=== PATIENT | male | born 1995 | race African-American/Black ===

== ENCOUNTER 2019-05-02 09:45 | Emergency (ER) | payer SELFPAY ==
--- NOTE | 2019-05-02 10:24 | EDM.PDOC ---
ED HPI GENERAL MEDICAL PROBLEM - General Chief Complaint: ENT Problem Stated Complaint: SORE THROAT Time Seen by Provider: 05/02/19 10:23 Source of Information: Reports: Patient History Limitations: Reports: No Limitations - History of Present Illness INITIAL COMMENTS - FREE TEXT/NARRATIVE: HISTORY AND PHYSICAL: History of present illness: Patient is a 23-year-old male presents to the ED with complaint of nasal congestion and sore throat x 10 days. He states he has had a slight cough and tactile fevers. He denies nausea, vomiting, diarrhea, abdominal pain, chest pain , shortness of breath. He reports history of asthma but has not needed his inhaler recently. Review of systems: As per history of present illness and below otherwise all systems reviewed and negative. Past medical history: As per history of present illness and as reviewed below otherwise noncontributory. Surgical history: As per history of present illness and as reviewed below otherwise noncontributory. Social history: No reported history of drug or alcohol abuse. Family history: As per history of present illness and as reviewed below otherwise noncontributory. Physical exam: General: Patient sitting comfortably in no acute distress and nontoxic appearing HEENT: Atraumatic, normocephalic, pupils reactive, negative for conjunctival pallor or scleral icterus, mucous membranes moist, throat clear, neck supple, nontender, trachea midline. No meningeal signs. Lungs: Clear to auscultation, breath sounds equal bilaterally, chest nontender. Heart: S1S2, regular, negative for clicks, rubs, or overt murmur. Abdomen: Soft, nondistended, nontender. Negative for masses or hepatosplenomegaly. Negative for costovertebral tenderness. No rigidity, rebound , guarding. Pelvis: Stable nontender. Genitourinary: Deferred. Rectal: Deferred. Extremities: Atraumatic, negative for cords or calf pain. Neurovascular unremarkable. Neuro: Awake, alert, oriented. Cranial nerves II through XII unremarkable. Cerebellum unremarkable. Motor and sensory unremarkable throughout. Exam nonfocal. Notes: Diagnostics: influenza, strep Therapeutics: none Prescriptions: Augmentin Impression: acute sinusitis Plan: Take antibiotic as instructed Follow up with primary care provider Return to ED as needed as discussed Definitive disposition and diagnosis as appropriate pending reevaluation and review of above. - Related Data Allergies Allergy/AdvReac Type Severity Reaction Status Date / Time peanut Allergy Anaphylactic Verified 05/02/19 09:56 Shock Home Meds: Home Meds Amoxicillin/Potassium Clav [Augmentin 875-125 Tablet] 1 each PO BID 7 Days #14 tablet 05/02/19 [Rx] Past Medical History - Past Health History Medical/Surgical History: Denies Medical/Surgical History Respiratory History: Reports: Asthma Social & Family History - Family History Family Medical History: Noncontributory - Tobacco Use Smoking Status *Q: Never Smoker - Recreational Drug Use Recreational Drug Use: No ED ROS ENT - Review of Systems Review Of Systems: Comprehensive ROS is negative, except as noted in HPI. ED EXAM, ENT - Physical Exam Exam: See Below (see dictation) Course - Vital Signs Last Recorded V/S: Last Vital Signs Temp 97.0 F 05/02/19 09:53 Pulse 76 05/02/19 09:53 Resp 18 05/02/19 09:53 BP 120/61 05/02/19 09:53 Pulse Ox 98 05/02/19 09:53 - Orders/Labs/Meds Orders: Active Orders 24 hr Category Date Time Status CULTURE STREP A CONFIRMATION [RM] Stat Lab 05/02/19 09:58 Results STREP SCRN A RAPID W CULT CONF [RM] Stat Lab 05/02/19 09:58 Results Departure - Departure Time of Disposition: 10:35 Disposition: Home, Self-Care 01 Condition: Good Clinical Impression: Acute sinusitis - Discharge Information Referrals: PCP,None [Primary Care Provider] - Forms: ED Department Discharge Additional Instructions: The following information is given to patients seen in the emergency department who are being discharged to home. This information is to outline your options for follow-up care. We provide all patients seen in our emergency department with a follow-up referral. The need for follow-up, as well as the timing and circumstances, are variable depending upon the specifics of your emergency department visit. If you don't have a primary care physician on staff, we will provide you with a referral. We always advise you to contact your personal physician following an emergency department visit to inform them of the circumstance of the visit and for follow-up with them and/or the need for any referrals to a consulting specialist. The emergency department will also refer you to a specialist when appropriate. This referral assures that you have the opportunity for follow-up care with a specialist. All of these measure are taken in an effort to provide you with optimal care, which includes your follow-up. Under all circumstances we always encourage you to contact your private physician who remains a resource for coordinating your care. When calling for follow-up care, please make the office aware that this follow-up is from your recent emergency room visit. If for any reason you are refused follow-up, please contact the [facility] Emergency Department at and asked to speak to the emergency department charge nurse. [facility] [address] [place] [id number] [address] Take antibiotic as instructed Follow up with primary care provider Return to ED as needed as discussed Sepsis Event Note - Evaluation Sepsis Screening Result: No Definite Risk - Focused Exam Vital Signs: Vital Signs Temp Pulse Resp BP Pulse Ox 05/02/19 09:53 97.0 F 76 18 120/61 98 Date Exam was Performed: 05/02/19 Time Exam was Performed: 10:35
== END 2019-05-02 10:52 | disposition home or self-care (01) ==
LOC: MW.ED 09:45
DX: J01.90 Acute sinusitis, unspecified (principal); Z91.010 Allergy to peanuts
CPT/HCPCS: 87081; 87804; 87880-QW; 99282; 99283

== ENCOUNTER 2019-05-18 21:32 | Emergency (ER) | payer OTHER ==
[2019-05-18] MEDS ORDERED: EPINEPHrine 1 MG/ML SDV ONE (21:36)
[2019-05-18] MEDS ORDERED: methylPREDNISolone Sodium Succinate 125 MG/2 ML SDV ONE (21:36)
[2019-05-18] MEDS ORDERED: diphenhydrAMINE 50 MG/ML SDV ONE (21:36)
[2019-05-18] MEDS ORDERED: Sodium Chloride 0.9% 10 ML Syringe FLUSH PRN (21:42)
[2019-05-18] MEDS ORDERED: Sodium Chloride 0.9% 2.5 ML Syringe FLUSH PRN (21:42)
[2019-05-18] MEDS ORDERED: Sodium Chloride 0.9% 1,000 ML IV ONE (21:42)
--- NOTE | 2019-05-18 21:46 | EDM.PDOC ---
ED HPI GENERAL MEDICAL PROBLEM - General Chief Complaint: Allergic Reaction Stated Complaint: HIVES Time Seen by Provider: 05/18/19 21:39 - History of Present Illness INITIAL COMMENTS - FREE TEXT/NARRATIVE: HISTORY AND PHYSICAL: History of present illness: The patient is a healthy 23-year-old male who presents with onset of diffuse hives and facial swelling that started about 40 minutes prior to coming to the ED in my evaluation. The patient says that he had a severe allergic reaction in the past after eating pizza but never followed up with an ceramic designer to determine what was the cause. The patient ate a chicken sandwich earlier and then was playing soccer when the symptoms started. He does not feel short of breath but he feels itchy and swollen and he says his tongue is a little swollen. With the prior events the patient says he was in the ER only and spent some time there but was never admitted to the hospital. The patient says he is not sure what was on the chicken sandwich and he is eaten food similar to this in the past without a reaction. He did not take any medications prior to coming here. He is not having any chest pain abdominal pain nausea vomiting and he had no systemic complaints prior to these events. Review of systems: As per history of present illness and below otherwise all systems reviewed and negative. Past medical history: As per history of present illness and as reviewed below otherwise noncontributory. Surgical history: As per history of present illness and as reviewed below otherwise noncontributory. Social history: No reported history of drug or alcohol abuse. Family history: As per history of present illness and as reviewed below otherwise noncontributory. Physical exam: : Well-developed well-nourished thin man who is nontoxic and vital signs are noted by me. He is speaking softly but is not breathless hoarse or muffled HEENT: Atraumatic, normocephalic, pupils reactive, negative for conjunctival pallor or scleral icterus, mucous membranes moist, throat clear, neck supple, nontender, trachea midline. There is some mild diffuse periorbital swelling and his tongue is slightly swollen and he has no uvula or posterior oropharyngeal edema. His lips are slightly swollen Lungs: Clear to auscultation, breath sounds equal bilaterally, chest nontender. No wheezing stridor or work of breathing Heart: S1S2, regular, negative for clicks, rubs, or JVD. Abdomen: Soft, nondistended, nontender. Negative for masses or hepatosplenomegaly. Negative for costovertebral tenderness. Pelvis: Stable nontender. Genitourinary: Deferred. Rectal: Deferred. Extremities: Atraumatic, negative for cords or calf pain. Neurovascular unremarkable. Neuro: Awake, alert, oriented. Cranial nerves II through XII unremarkable. Cerebellum unremarkable. Motor and sensory unremarkable throughout. Exam nonfocal. Skin: There is diffuse urticaria appreciated and turgor is normal Diagnostics: [] Therapeutics: IV O2 monitor IV fluids subcu epi Benadryl Solu-Medrol He is significantly improved, his blood pressure has normalized and has no facial swelling and the rash is gone on his upper extremities and trunk and there is still some residual rash on his legs. He is aware that he needs to connect with a local ceramic designer and have allergy testing to determine the cause of these reactions and have advised him to take Benadryl every 6 hours for the next 24 hours and then as needed as well as the prednisone. Impression: acute Allergic reaction Definitive disposition and diagnosis as appropriate pending reevaluation and review of above. - Related Data Allergies Allergy/AdvReac Type Severity Reaction Status Date / Time peanut Allergy Anaphylactic Verified 05/18/19 22:05 Shock Home Meds: Home Meds . [No Known Home Meds] 05/18/19 [History] Past Medical History - Past Health History Medical/Surgical History: Denies Medical/Surgical History Respiratory History: Reports: Asthma Social & Family History - Family History Family Medical History: Noncontributory ED ROS ALLERGIC REACTION - Review of Systems Review Of Systems: Comprehensive ROS is negative, except as noted in HPI. ED EXAM GENERAL NO PERIP PULSE - Physical Exam Exam: See Below (see dictation) Course - Vital Signs Last Recorded V/S: Last Vital Signs Temp 36.1 C 05/18/19 21:33 Pulse 64 05/18/19 22:15 Resp 16 05/18/19 22:15 BP 120/58 L 05/18/19 22:15 Pulse Ox 99 05/18/19 22:15 - Orders/Labs/Meds Orders: Active Orders 24 hr Category Date Time Status Sodium Chloride 0.9% [Saline Flush] Med 05/18/19 21:42 Active 10 ml FLUSH ASDIRECTED PRN Sodium Chloride 0.9% [Saline Flush] Med 05/18/19 21:42 Active 2.5 ml FLUSH ASDIRECTED PRN Saline Lock Insert [OM.PC] Stat Oth 05/18/19 21:42 Ordered Medication Orders Sodium Chloride (Saline Flush) 10 ml FLUSH ASDIRECTED PRN PRN Reason: Keep Vein Open Sodium Chloride (Saline Flush) 2.5 ml FLUSH ASDIRECTED PRN PRN Reason: Keep Vein Open Meds: Medications Generic Name Dose Route Start Last Admin Trade Name Frejoni PRN Reason Stop Dose Admin Sodium Chloride 10 ml 05/18/19 21:42 Saline Flush FLUSH ASDIRECTED PRN Keep Vein Open Sodium Chloride 2.5 ml 05/18/19 21:42 Saline Flush FLUSH ASDIRECTED PRN Keep Vein Open Discontinued Medications Generic Name Dose Route Start Last Admin Trade Name Frejoni PRN Reason Stop Dose Admin Diphenhydramine HCl Confirm 05/18/19 21:36 05/18/19 22:45 Benadryl Administered 05/18/19 21:37 Not Given Dose 50 mg .ROUTE .STK-MED ONE Diphenhydramine HCl 50 mg 05/18/19 22:44 Benadryl IVPUSH 05/18/19 22:45 ONETIME ONE Epinephrine HCl Confirm 05/18/19 21:36 05/18/19 22:45 Adrenalin Administered 05/18/19 21:37 Not Given Dose 1 mg .ROUTE .STK-MED ONE Epinephrine HCl 0.5 mg 05/18/19 22:44 Adrenalin IM 05/18/19 22:45 ONETIME ONE Sodium Chloride 1,000 mls @ 999 mls/hr 05/18/19 21:42 Normal Saline IV 05/18/19 22:42 STAT ONE Methylprednisolone Sodium Succinate Confirm 05/18/19 21:36 05/18/19 22:45 Solu-Medrol Administered 05/18/19 21:37 Not Given Dose 125 mg .ROUTE .STK-MED ONE Methylprednisolone Sodium Succinate 125 mg 05/18/19 22:44 Solu-Medrol IVPUSH 05/18/19 22:45 ONETIME ONE Departure - Departure Time of Disposition: 23:23 Disposition: Home, Self-Care 01 Condition: Good Clinical Impression: Allergic reaction Qualifiers: Encounter type: initial encounter Qualified Code(s): T78.40XA - Allergy, unspecified, initial encounter - Discharge Information Referrals: PCP,None [Primary Care Provider] - Additional Instructions: The following information is given to patients seen in the emergency department who are being discharged to home. This information is to outline your options for follow-up care. We provide all patients seen in our emergency department with a follow-up referral. The need for follow-up, as well as the timing and circumstances, are variable depending upon the specifics of your emergency department visit. If you don't have a primary care physician on staff, we will provide you with a referral. We always advise you to contact your personal physician following an emergency department visit to inform them of the circumstance of the visit and for follow-up with them and/or the need for any referrals to a consulting specialist. The emergency department will also refer you to a specialist when appropriate. This referral assures that you have the opportunity for followup care with a specialist. All of these measure are taken in an effort to provide you with optimal care, which includes your followup. Under all circumstances we always encourage you to contact your private physician who remains a resource for coordinating your care. When calling for followup care, please make the office aware that this follow-up is from your recent emergency room visit. If for any reason you are refused follow-up, please contact the [facility] emergency department at and ask to speak to the emergency department charge nurse. [facility] Primary care- Internal Medicine and Family [place] [phone] Please connect with 1 of our primary care physicians as well as an ceramic designer to have allergy testing to determine the cause of these reactions. These take Benadryl every 6 hours for the next 24 hours as we discussed and then as needed. Take prednisone as prescribed starting on Saturday. Push hydration and return to ER as needed and as discussed Sepsis Event Note - Focused Exam Vital Signs: Vital Signs Temp Pulse Resp BP Pulse Ox 05/18/19 22:15 64 16 120/58 L 99 05/18/19 21:33 36.1 C 104 H 22 H 94/47 L 97 Date Exam was Performed: 05/18/19 Time Exam was Performed: 23:21 - My Orders Last 24 Hours: My Active Orders 05/18/19 21:42 Sodium Chloride 0.9% [Saline Flush] 10 ml FLUSH ASDIRECTED PRN Sodium Chloride 0.9% [Saline Flush] 2.5 ml FLUSH ASDIRECTED PRN Saline Lock Insert [OM.PC] Stat - Assessment/Plan Last 24 Hours: My Active Orders 05/18/19 21:42 Sodium Chloride 0.9% [Saline Flush] 10 ml FLUSH ASDIRECTED PRN Sodium Chloride 0.9% [Saline Flush] 2.5 ml FLUSH ASDIRECTED PRN Saline Lock Insert [OM.PC] Stat
[2019-05-18] MEDS ORDERED: methylPREDNISolone Sodium Succinate 125 MG/2 ML SDV IVPUSH ONE (22:44)
[2019-05-18] MEDS ORDERED: EPINEPHrine 1 MG/ML SDV IM ONE (22:44)
[2019-05-18] MEDS ORDERED: diphenhydrAMINE 50 MG/ML SDV IVPUSH ONE (22:44)
== END 2019-05-18 23:35 | disposition home or self-care (01) ==
LOC: MW.ED 21:32
DX: L50.0 Allergic urticaria (principal); Z91.010 Allergy to peanuts
CPT/HCPCS: 96372; 96374; 96375; 99283; J0171; J1200; J2930; J7030

== ENCOUNTER 2020-06-12 20:18 | Emergency (ER) | payer OTHER ==
[2020-06-12] MEDS ORDERED: diphenhydrAMINE 50 MG/ML SDV IVPUSH ONE (20:31)
[2020-06-12] MEDS ORDERED: Sodium Chloride 0.9% 1,000 ML IV ONE (20:31)
[2020-06-12] MEDS ORDERED: methylPREDNISolone Sodium Succinate 125 MG/2 ML SDV IVPUSH ONE (20:31)
[2020-06-12] MEDS ORDERED: Famotidine 20 MG/2 ML SDV IVPUSH ONE (20:31)
--- NOTE | 2020-06-12 20:37 | EDM.PDOC ---
ED HPI GENERAL MEDICAL PROBLEM - General Chief Complaint: Allergic Reaction Stated Complaint: ALLERGIC REACTION Time Seen by Provider: 06/12/20 20:31 Source of Information: Reports: Patient History Limitations: Reports: No Limitations - History of Present Illness INITIAL COMMENTS - FREE TEXT/NARRATIVE: HISTORY AND PHYSICAL: History of present illness: Patient is a 24-year-old male who presents to the emergency room with complaints of rash, itching and slightly short of breath after coming into contact with peanuts. States approximately an hour prior to arrival he was at [employer] eating ice cream when he started to have symptoms. His significant other had given him 50 mg of Benadryl but felt his symptoms were not improving. He has a known allergy to peanuts but has been encouraged to get formal testing as they are concerned he could have other allergies. Patient denies any fever, chills, headache, change in vision, syncope or near syncope. No drooling or difficulty swallowing. Denies any chest pain, back pain, shortness of breath or cough. Denies any abdominal pain, nausea, vomiting, diarrhea, constipation or dysuria. Has not noted any blood in urine or stool. Patient has been eating and drinking appropriately. Review of systems: As per history of present illness and below otherwise all systems reviewed and negative. Past medical history: As per history of present illness and as reviewed below otherwise noncontributory. Surgical history: As per history of present illness and as reviewed below otherwise noncontributory. Social history: See social history for further information Family history: As per history of present illness and as reviewed below otherwise noncontributory. Physical exam: General: Well developed and well nourished. Alert and orientated x 3. Nontoxic in appearance and in no acute distress. Vital signs are stable and have been reviewed by me. Nursing notes were reviewed. HEENT: Atraumatic, normocephalic, pupils equal and reactive bilaterally, negative for conjunctival pallor or scleral icterus, mucous membranes moist, no angioedema noted, TMs normal bilaterally, throat clear, neck supple, nontender, trachea midline. No drooling or trismus noted. Speaking clearly. No meningeal signs. No hot potato voice noted. Lungs: Clear to auscultation bilaterally. No wheezes, rales, or rhonchi. Chest nontender. Normal work of breathing, no accessory muscles used. Heart: S1S2, regular rate and rhythm without overt murmur, gallops, or rubs. No JVD. No peripheral edema Abdomen: Soft, nondistended, nontender. Normoactive bowel sounds. Negative for masses or costovertebral tenderness. Skin: Faint raised hives noted to neck, torso and upper extremities. Remaining skin is intact, warm, dry. No lesions noted. Hematologic: No petechiae or purpra. Mucosa appropriate color and normal nail bed color and refill. Extremities: Atraumatic, moves all extremities per self without difficulty or deficits, negative for cords or calf pain. Neurovascular unremarkable. Neuro: Awake, alert, oriented. Cranial nerves II through XII unremarkable. Cerebellum unremarkable. Motor and sensory unremarkable throughout. Exam nonfoca l. Psychiatric: Mood and affect are appropriate. Normal thought process. Answering questions appropriately. Notes: *This patient was seen and evaluated during the 2019 SARS-CoV-2 novel coronavirus pandemic period. Community viral transmission is ongoing at time of this encounter and the emergency department is operating under pandemic response procedures. Patient was reevaluated several times after receiving the IV medication and he states he is gradually feeling improved. His vital signs remained stable. We will continue to monitor. I have talked with the patient about today's findings, in addition to providing specific details for plan of care. Reassessment at the time of disposition demonstrates that the patient is in no acute distress. Lung sounds clear. VSS. He is currently asymptomatic. The patient is stable for discharge, counseling was provided and we discussed in great detail signs and symptoms that would prompt them to return to the Emergency Department. Medication, follow up and supportive care measures were reviewed and discussed. Voices understanding and is agreeable to plan of care. Denies any further questions or concerns at this time. Diagnostics: None Therapeutics: Benadryl, Solu-Medrol, Pepcid, IV fluid Prescription: EpiPen, Prednisone Impression: Allergic reaction Plan: 1. Avoid triggers. Continue to monitor for possible exposures/triggers/foods. 2. While symptomatic continue to routinely take Benadryl 50mg every 4-6 hours and Zantac 150mg twice daily. Take the prednisone as prescribed. 3. Carry your Epi-Pen with you at all times. Use in the case of an emergency and call 911 and/or present to the ER. 4. You may use topical calamine lotion, cool tempid oatmeal baths, Aveeno bath/lotions. 5. Consider formal allergy testing once you have completed your medications and have improved. 6. Please follow up with your Primary care doctor tomorrow. Return to the ED as needed and as discussed. Definitive disposition and diagnosis as appropriate pending reevaluation and review of above. - Related Data Allergies Allergy/AdvReac Type Severity Reaction Status Date / Time peanut Allergy Anaphylactic Verified 06/12/20 20:22 Shock Home Meds: Home Meds EPINEPHrine [Epipen] 0.3 mg IM ASDIRECTED PRN #1 pen 06/12/20 [Rx] predniSONE [Prednisone] 40 mg PO DAILY 4 Days #8 tablet 06/12/20 [Rx] Past Medical History - Past Health History Medical/Surgical History: Denies Medical/Surgical History Respiratory History: Reports: Asthma Immunologic History: Reports: Other (See Below) Other Immunologic History: anaphylaxis apr 2018 - Infectious Disease History Infectious Disease History: Reports: None Social & Family History - Family History Family Medical History: No Pertinent Family History - Tobacco Use Tobacco Use Status *Q: Never Tobacco User - Caffeine Use Caffeine Use: Reports: None - Recreational Drug Use Recreational Drug Use: No ED ROS ALLERGIC REACTION - Review of Systems Review Of Systems: Comprehensive ROS is negative, except as noted in HPI. ED EXAM GENERAL NO PERIP PULSE - Physical Exam Exam: See Below (See dictation) Course - Vital Signs Last Recorded V/S: Last Vital Signs Temp 98.4 F 06/12/20 20:23 Pulse 72 06/12/20 21:27 Resp 16 06/12/20 21:27 BP 118/72 06/12/20 21:27 Pulse Ox 98 06/12/20 21:27 - Orders/Labs/Meds Meds: Medications Discontinued Medications Generic Name Dose Route Start Last Admin Trade Name Freq PRN Reason Stop Dose Admin Diphenhydramine HCl 50 mg 06/12/20 20:31 06/12/20 20:41 Benadryl IVPUSH 06/12/20 20:32 50 mg ONETIME ONE Administration Famotidine 20 mg 06/12/20 20:31 06/12/20 20:41 Pepcid IVPUSH 06/12/20 20:32 20 mg ONETIME ONE Administration Sodium Chloride 1,000 mls @ 999 mls/hr 06/12/20 20:31 06/12/20 20:37 Normal Saline IV 06/12/20 21:31 999 mls/hr STAT ONE Administration Methylprednisolone Sodium Succinate 125 mg 06/12/20 20:31 06/12/20 20:39 Solu-Medrol IVPUSH 06/12/20 20:32 125 mg ONETIME ONE Administration Departure - Departure Time of Disposition: 22:07 Disposition: Home, Self-Care 01 Clinical Impression: Allergic reaction Qualifiers: Encounter type: initial encounter Qualified Code(s): T78.40XA - Allergy, unspecified, initial encounter - Discharge Information Prescriptions: EPINEPHrine [Epipen] 0.3 mg IM ASDIRECTED PRN #1 pen PRN Reason: Allergic reaction predniSONE [Prednisone] 40 mg PO DAILY 4 Days #8 tablet Instructions: Allergies, Adult, [id number] Referrals: PCP,None [Primary Care Provider] - Forms: ED Department Discharge Additional Instructions: The following information is given to patients seen in the emergency department who are being discharged to home. This information is to outline your options for follow-up care. We provide all patients seen in our emergency department with a follow-up referral. The need for follow-up, as well as the timing and circumstances, are variable depending upon the specifics of your emergency department visit. If you don't have a primary care physician on staff, we will provide you with a referral. We always advise you to contact your personal physician following an emergency department visit to inform them of the circumstance of the visit and for follow-up with them and/or the need for any referrals to a consulting specialist. The emergency department will also refer you to a specialist when appropriate. This referral assures that you have the opportunity for follow-up care with a specialist. All of these measure are taken in an effort to provide you with optimal care, which includes your follow-up. Under all circumstances we always encourage you to contact your private physician who remains a resource for coordinating your care. When calling for follow-up care, please make the office aware that this follow-up is from your recent emergency room visit. If for any reason you are refused follow-up, please contact the [facility] Emergency Department at and asked to speak to the emergency department charge nurse. [facility] [address] [place] [id number] [facility] [address] [place] [id number] Thank you for choosing the [facility] emergency department in [place] for your medical needs today. It was a pleasure caring for you. Today you were seen in the emergency department for allergic reaction 1. Avoid triggers. Continue to monitor for possible exposures/triggers/foods. 2. While symptomatic continue to routinely take Benadryl 50mg every 4-6 hours and Zantac 150mg twice daily. Take the prednisone as prescribed. 3. Carry your Epi-Pen with you at all times. Use in the case of an emergency and call 911 and/or present to the ER. 4. You may use topical calamine lotion, cool tempid oatmeal baths, Aveeno bath/lotions. 5. Consider formal allergy testing once you have completed your medications and have improved. 6. Please follow up with your Primary care doctor tomorrow. Return to the ED as needed and as discussed. Sepsis Event Note (ED) - Evaluation Sepsis Screening Result: No Definite Risk - Focused Exam Vital Signs: Vital Signs Temp Pulse Resp BP Pulse Ox 06/12/20 21:27 72 16 118/72 98 06/12/20 20:23 98.4 F 72 20 122/80 98
== END 2020-06-12 22:09 | disposition home or self-care (01) ==
LOC: MW.ED 20:18
DX: T78.40XA Allergy, unspecified, initial encounter (principal); J45.909 Unspecified asthma, uncomplicated; Z91.010 Allergy to peanuts
CPT/HCPCS: 96374; 96375; 99283; J1200; J2930; J3490; J7030

== ENCOUNTER 2020-07-12 18:10 | Emergency (ER) | payer OTHER ==
--- NOTE | 2020-07-12 19:01 | EDM.PDOC ---
ED HPI GENERAL MEDICAL PROBLEM - General Chief Complaint: Laceration Stated Complaint: RT ELBOW CUT Time Seen by Provider: 07/12/20 18:16 Source of Information: Reports: Patient History Limitations: Reports: No Limitations - History of Present Illness INITIAL COMMENTS - FREE TEXT/NARRATIVE: HISTORY AND PHYSICAL: History of present illness: The patient is a 24-year-old male who presents to the emergency room with complaints of right posterior elbow laceration, which happened when he was leaving work as he was putting on his jacket and extending his arm he caught it on some that will object on the wall. He states he washed the wound and came straight to the emergency room. His tetanus is up-to-date. He has no other injuries. Patient denies any fever, chills, headache, change in vision, syncope or near syncope. Denies any chest pain, back pain, shortness of breath or cough. Denies any abdominal pain, nausea, vomiting, diarrhea, constipation or dysuria. Has not noted any blood in urine or stool. Patient has been eating and drinking appropriately. Review of systems: As per history of present illness and below otherwise all systems reviewed and negative. Past medical history: As per history of present illness and as reviewed below otherwise noncontributory. Surgical history: As per history of present illness and as reviewed below otherwise noncontributo ry. Social history: See social history for further information Family history: As per history of present illness and as reviewed below otherwise noncontributory. Physical exam: General: Well developed and well nourished. Alert and orientated x 3. Nontoxic in appearance and in no acute distress. Vital signs are stable and have been reviewed by me. Nursing notes were reviewed. HEENT: Atraumatic, normocephalic, pupils equal and reactive bilaterally, negative for conjunctival pallor or scleral icterus, mucous membranes moist, TMs normal bilaterally, throat clear, neck supple, nontender, trachea midline. No drooling or trismus noted. No meningeal signs. No hot potato voice noted. Lungs: Clear to auscultation bilaterally. No wheezes, rales, or rhonchi. Chest nontender. Normal work of breathing, no accessory muscles used. Heart: S1S2, regular rate and rhythm without overt murmur, gallops, or rubs. No JVD. No peripheral edema Abdomen: Soft, nondistended, nontender. Normoactive bowel sounds. Negative for masses or costovertebral tenderness. Skin: I2.5 cm linear laceration posterior right elbow. CMS intact. No lesions or rashes noted. Hematologic: No petechiae or purpra. Mucosa appropriate color and normal nail bed color and refill. Extremities: Moves all extremities per self without difficulty or deficits, negative for cords or calf pain. Neurovascular unremarkable. Neuro: Awake, alert, oriented. Cranial nerves II through XII unremarkable. Cerebellum unremarkable. Motor and sensory unremarkable throughout. Exam nonfocal. Psychiatric: Mood and affect are appropriate. Normal thought process. Answering questions appropriately. Notes: *This patient was seen and evaluated during the 2019 SARS-CoV-2 novel coronavirus pandemic period. Community viral transmission is ongoing at time of this encounter and the emergency department is operating under pandemic response procedures. After examination discussed with the patient he is agreeable to suture repair. 4 sutures were used in repair the 2.5 cm laceration located on the posterior right elbow. I have talked with the patient about today's findings, in addition to providing specific details for plan of care. Reassessment at the time of disposition demonstrates that the patient is in no acute distress. The patient is stable for discharge, counseling was provided and we discussed in great detail signs and symptoms that would prompt them to return to the Emergency Department. Medication, follow up and supportive care measures were reviewed and discussed. Voices understanding and is agreeable to plan of care. Denies any further questions or concerns at this time. Therapeutics: lidocaine 1% Impression: Laceration Plan: 1. You were evaluated today on an emergent basis. Your right elbow laceration was repaired with four sutures. Keep the area clean and dry. Monitor for redness, swelling, abnormal drainage return to the ED. Do not submerge your sutures in water, but you can take showers as normal. 2. You can alternate Tylenol and ibuprofen as needed for pain and fever management. 3. We encourage you to follow up with your primary care provider and/or recommended specialist in the next few days for re-evaluation and further care/management. 4. If your symptoms should worsen, new symptoms develop or any of the signs and symptoms we discussed should arise please return to the emergency room or call 911 (if needed). Definitive disposition and diagnosis as appropriate pending reevaluation and review of above. Right forearm Pain Score (Numeric/FACES): 1 - Related Data Allergies Allergy/AdvReac Type Severity Reaction Status Date / Time peanut Allergy Anaphylactic Verified 07/12/20 18:34 Shock Home Meds: Home Meds EPINEPHrine [Epipen] 0.3 mg IM ASDIRECTED PRN #1 pen 06/12/20 [Rx] Past Medical History - Past Health History Medical/Surgical History: Denies Medical/Surgical History Respiratory History: Reports: Asthma Immunologic History: Reports: Other (See Below) Other Immunologic History: anaphylaxis apr 2018 - Infectious Disease History Infectious Disease History: Reports: None Social & Family History - Family History Family Medical History: No Pertinent Family History - Tobacco Use Tobacco Use Status *Q: Never Tobacco User - Caffeine Use Caffeine Use: Reports: None - Recreational Drug Use Recreational Drug Use: No ED ROS GENERAL - Review of Systems Review Of Systems: Comprehensive ROS is negative, except as noted in HPI. ED EXAM, SKIN/RASH Exam: See Below (See dictation) ED SKIN PROCEDURES - Laceration/Wound Repair Right Posterior Elbow Appearance: Superficial Distal NVT: Neuro & Vascular Intact, No Tendon Injury Anesthetic Type: Local Local Anesthesia - Lidocaine (Xylocaine): 1% Plain Local Anesthetic Volume: 4cc Skin Prep: Chlorhexidine (Hibiciens) Exploration/Debridement/Repair: Wound Explored, No Foreign Material Found, Wound Margins Revised Closed with: Sutures Lac/Wound length In cm: 2.5 Suture Size: 3-0 # of Sutures: 4 Suture Type: Prolene Course - Vital Signs Last Recorded V/S: Last Vital Signs Temp 97.3 F 07/12/20 18:34 Pulse 67 07/12/20 18:34 Resp 16 07/12/20 18:34 BP 115/70 07/12/20 18:34 Pulse Ox 98 07/12/20 18:34 - Orders/Labs/Meds Meds: Medications Discontinued Medications Generic Name Dose Route Start Last Admin Trade Name Freq PRN Reason Stop Dose Admin Lidocaine HCl 5 ml 07/12/20 18:29 07/12/20 18:33 Lidocaine 1% 5 Ml Sdv INJECT 07/12/20 18:30 5 ml ONETIME ONE Administration Departure - Departure Time of Disposition: 19:00 Disposition: Home, Self-Care 01 Condition: Good Clinical Impression: Laceration - Discharge Information *PRESCRIPTION DRUG MONITORING PROGRAM REVIEWED*: Not Applicable *COPY OF PRESCRIPTION DRUG MONITORING REPORT IN PATIENT GEOVANNI: Not Applicable Instructions: Laceration Care, Adult Referrals: PCP,None [Primary Care Provider] - Forms: ED Department Discharge Additional Instructions: The following information is given to patients seen in the emergency department who are being discharged to home. This information is to outline your options for follow-up care. We provide all patients seen in our emergency department with a follow-up referral. The need for follow-up, as well as the timing and circumstances, are variable depending upon the specifics of your emergency department visit. If you don't have a primary care physician on staff, we will provide you with a referral. We always advise you to contact your personal physician following an emergency department visit to inform them of the circumstance of the visit and for follow-up with them and/or the need for any referrals to a consulting specialist. The emergency department will also refer you to a specialist when appropriate. This referral assures that you have the opportunity for follow-up care with a specialist. All of these measure are taken in an effort to provide you with optimal care, which includes your follow-up. Under all circumstances we always encourage you to contact your private physician who remains a resource for coordinating your care. When calling for follow-up care, please make the office aware that this follow-up is from your recent emergency room visit. If for any reason you are refused follow-up, please contact the [facility] Emergency Department at and asked to speak to the emergency department charge nurse. [facility] - [facility] [address] [place] [address] [place] [address] Plan: 1. You were evaluated today on an emergent basis. Your right elbow laceration was repaired with four sutures. Keep the area clean and dry. Monitor for redness, swelling, abnormal drainage return to the ED. Do not submerge your sutures in water, but you can take showers as normal. 2. You can alternate Tylenol and ibuprofen as needed for pain and fever management. 3. We encourage you to follow up with your primary care provider and/or recommended specialist in the next few days for re-evaluation and further care/management. 4. If your symptoms should worsen, new symptoms develop or any of the signs and symptoms we discussed should arise please return to the emergency room or call 911 (if needed). Sepsis Event Note (ED) - Evaluation Sepsis Screening Result: No Definite Risk - Focused Exam Vital Signs: Vital Signs Temp Pulse Resp BP Pulse Ox 07/12/20 18:34 97.3 F 67 16 115/70 98
== END 2020-07-12 19:20 | disposition home or self-care (01) ==
LOC: MW.ED 18:10
DX: S51.011A Laceration without foreign body of right elbow, initial encounter (principal); J45.909 Unspecified asthma, uncomplicated; Z91.010 Allergy to peanuts; W23.0XXA Caught, crushed, jammed, or pinched between moving objects, initial encounter
CPT/HCPCS: 12001; 99282; 99282-25

== ENCOUNTER 2020-09-26 18:38 | Emergency (ER) | payer SELFPAY ==
[2020-09-26] MEDS ORDERED: Famotidine 20 MG/2 ML SDV IVPUSH ONE (18:52)
[2020-09-26] MEDS ORDERED: diphenhydrAMINE 50 MG/ML SDV IVPUSH ONE (18:52)
[2020-09-26] MEDS ORDERED: Sodium Chloride 0.9% 10 ML Syringe FLUSH PRN (18:52)
[2020-09-26] MEDS ORDERED: methylPREDNISolone Sodium Succinate 125 MG/2 ML SDV IVPUSH ONE (18:52)
[2020-09-26] MEDS ORDERED: Sodium Chloride 0.9% 2.5 ML Syringe FLUSH PRN (18:52)
--- NOTE | 2020-09-26 18:56 | EDM.PDOC ---
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 Patient reports that he does have an allergy to peanuts as well as seafood but he does not think that he had any exposure to that today. Patient reports that he works at [employer] and today he had a new hamburger with new types of onions and sauce and thinks that might have been the culprit. Patient denies any recent fevers, shakes, chills, nausea, vomiting, diarrhea, dysuria, frequency, urgency. Patient denies any chest pain or abdominal discomfort. Patient denies any shortness of breath or wheezing. Patient reports he does feel a slight tickle in the back of his throat but denies any swelling in his tongue or lips. Patient reports in the past he has been instructed to follow-up with an senior medical billing specialist which she has not done therefore he is not exactly sure what he is allergic to. Review of systems: As per history of present illness and below otherwise all systems reviewed and negative. Past medical history: As per history of present illness and as reviewed below otherwise noncontributory. Surgical history: As per history of present illness and as reviewed below otherwise noncontributory. Social history: No reported history of drug abuse. Family history: As per history of present illness and as reviewed below otherwise noncontrib utory. Physical exam: This patient was seen and evaluated during the 2019 SARS-CoV-2 novel coronavirus pandemic period. Community viral transmission is ongoing at time of this encounter and the emergency department is operating under pandemic response procedures. Constitutional: Patient is oriented to person, place, and time. Appears well- developed and well-nourished. No distress. HEENT: Moist mucous membranes Head: Normocephalic and atraumatic Eyes: Right eye exhibits no discharge. Left eye exhibits no discharge. No scleral icterus Neck: Normal range of motion. No tracheal deviation present. Cardiovascular: Normal rate and regular rhythm. Pulmonary: Effort normal, no respiratory distress. Abdominal: No distention Musculoskeletal: Normal range of motion Neurologic: Alert and oriented to person, place and time. Skin: [place], warm and dry. Psychiatric: Normal mood and affect. Behavior is normal. Judgment and thought content normal. Nursing note and vital signs have been reviewed Patient's ER physical exam is significant for diffuse hives throughout his body including his arms torso face neck and back. Patient's oropharynx is clear without any uvular or tongue edema. Patient has no stridor. Patient's lungs are clear without any wheezing rales or rhonchi. Diagnostics: [] Therapeutics: Pepcid/Solu-Medrol/Benadryl Assessment and plan: This is a 25-year-old gentleman who presents ER today with hives of unclear etiology. 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 Patient believes that he might have an allergy to peanuts as well as seafood and he reports he did not have any peanuts or seafood today. Patient will be given Solu-Medrol, Pepcid, Benadryl in the ED and will be observed in the ER. Patient will likely need to be discharged home with an EpiPen if he improves. Care will be signed out to oncoming physician, Dr. Puga for reevaluation and monitoring in the ED until his rash improves and to make sure that he has no airway compromise that developed. Definitive disposition and diagnosis as appropriate pending reevaluation and review of above. - Related Data Allergies Allergy/AdvReac Type Severity Reaction Status Date / Time peanut Allergy Anaphylactic Verified 09/26/20 18:47 Shock Home Meds: Home Meds methylPREDNISolone [Medrol Dose Pack] 4 mg PO DAILY #21 tab 09/26/20 [Rx] Past Medical History - Past Health History Medical/Surgical History: Denies Medical/Surgical History Respiratory History: Reports: Asthma Immunologic History: Reports: Other (See Below) Other Immunologic History: anaphylaxis apr 2018 - Infectious Disease History Infectious Disease History: Reports: None Social & Family History - Family History Family Medical History: No Pertinent Family History - Caffeine Use Caffeine Use: Reports: None ED ROS ALLERGIC REACTION - Review of Systems Review Of Systems: See Below ED EXAM GENERAL NO PERIP PULSE - Physical Exam Exam: See Below Departure - Departure Disposition: Home, Self-Care 01 Clinical Impression: Urticaria - Discharge Information Prescriptions: methylPREDNISolone [Medrol Dose Pack] 4 mg PO DAILY #21 tab Instructions: Hives Referrals: PCP,None [Primary Care Provider] - Forms: ED Department Discharge Additional Instructions: Pepcid and Benadryl should be taken for 3 days. They are [id number] oral medications. A steroid Dosepak was sent to your pharmacy. After the steroids are finished if you have a sudden recurrence of the rash then you need to investigate what environmental exposure is ongoing and continuous. Allergy testing is advised. There are senior medical billing specialist in my not who are not affiliated with this hospital. You can have your primary doctor or eye primary care clinic or call directly and make arrangements to be seen. [facility] - Primary Care [address] [place] [id number] [place] [address] The following information is given to patients seen in the emergency department who are being discharged to home. This information is to outline your options f or follow-up care. We provide all patients seen in our emergency department with a follow-up referral. The need for follow-up, as well as the timing and circumstances, are variable depending upon the specifics of your emergency department visit. If you don't have a primary care physician on staff, we will provide you with a referral. We always advise you to contact your personal physician following an emergency department visit to inform them of the circumstance of the visit and for follow-up with them and/or the need for any referrals to a consulting specialist. The emergency department will also refer you to a specialist when appropriate. This referral assures that you have the opportunity for follow-up care with a specialist. All of these measure are taken in an effort to provide you with optimal care, which includes your follow-up. Under all circumstances we always encourage you to contact your private physician who remains a resource for coordinating your care. When calling for follow-up care, please make the office aware that this follow-up is from your recent emergency room visit. If for any reason you are refused follow-up, please contact the [facility] Emergency Department at and asked to speak to the emergency department charge nurse. <Hank Puga - Last Filed: 09/26/20 19:52> Course - Vital Signs Text/Narrative:: Seen 51 hours the patient is markedly improved. He says not completely improved. He is counseled regarding seeing an senior medical billing specialist if it returns as soon as he finishes his Medrol Dosepak that was sent to the pharmacy. Last Recorded V/S: Last Vital Signs Temp 36.8 C 09/26/20 19:06 Pulse 84 09/26/20 19:06 Resp 20 09/26/20 19:06 BP 134/63 09/26/20 19:06 Pulse Ox 98 09/26/20 19:06 - Orders/Labs/Meds Orders: Active Orders 24 hr Category Date Time Status Sodium Chloride 0.9% [Saline Flush] Med 09/26/20 18:52 Active 10 ml FLUSH ASDIRECTED PRN Sodium Chloride 0.9% [Saline Flush] Med 09/26/20 18:52 Active 2.5 ml FLUSH ASDIRECTED PRN Saline Lock Insert [OM.PC] Stat Oth 09/26/20 18:52 Ordered Medication Orders Sodium Chloride (Sodium Chloride 0.9% 10 Ml Syringe) 10 ml FLUSH ASDIRECTED PRN PRN Reason: Keep Vein Open Last Admin: 09/26/20 19:03 Dose: 10 ml Documented by: MIRIAM Sodium Chloride (Sodium Chloride 0.9% 2.5 Ml Syringe) 2.5 ml FLUSH ASDIRECTED PRN PRN Reason: Keep Vein Open Last Admin: 09/26/20 19:02 Dose: 2.5 ml Documented by: MIRIAM Meds: Medications Generic Name Dose Route Start Last Admin Trade Name Freq PRN Reason Stop Dose Admin Sodium Chloride 10 ml 09/26/20 18:52 09/26/20 19:03 Sodium Chloride 0.9% 10 Ml Syringe FLUSH 10 ml ASDIRECTED PRN Administration Keep Vein Open Sodium Chloride 2.5 ml 09/26/20 18:52 09/26/20 19:02 Sodium Chloride 0.9% 2.5 Ml Syringe FLUSH 2.5 ml ASDIRECTED PRN Administration Keep Vein Open Discontinued Medications Generic Name Dose Route Start Last Admin Trade Name Freq PRN Reason Stop Dose Admin Diphenhydramine HCl 50 mg 09/26/20 18:52 09/26/20 19:02 Diphenhydramine 50 Mg/Ml Sdv IVPUSH 09/26/20 18:53 50 mg ONETIME ONE Administration Famotidine 20 mg 09/26/20 18:52 09/26/20 19:02 Famotidine 20 Mg/2 Ml Sdv IVPUSH 09/26/20 18:53 20 mg ONETIME ONE Administration Methylprednisolone Sodium Succinate 125 mg 09/26/20 18:52 09/26/20 19:02 Methylprednisolone Sodium Succinate 125 Mg/2 Ml Sdv IVPUSH 09/26/20 18:53 125 mg ONETIME ONE Administration Departure - Departure Time of Disposition: 19:52 Condition: Good Sepsis Event Note (ED) - Focused Exam Vital Signs: Vital Signs Temp Pulse Resp BP Pulse Ox 09/26/20 19:06 36.8 C 84 20 134/63 98 09/26/20 18:48 36.4 C 110 H 17 134/63 97
== END 2020-09-26 20:03 | disposition home or self-care (01) ==
LOC: MW.ED 18:38
DX: L50.9 Urticaria, unspecified (principal); J45.909 Unspecified asthma, uncomplicated; Z91.010 Allergy to peanuts
CPT/HCPCS: 96374; 96375; 99283; J1200; J2930; J3490

== ENCOUNTER 2020-11-05 00:01 | Emergency (ER) | payer SELFPAY ==
[2020-11-05] MEDS ORDERED: Famotidine 20 MG/2 ML SDV IVPUSH ONE (00:14)
[2020-11-05] MEDS ORDERED: diphenhydrAMINE 50 MG/ML SDV IVPUSH ONE (00:14)
[2020-11-05] MEDS ORDERED: methylPREDNISolone Sodium Succinate 125 MG/2 ML SDV IVPUSH ONE (00:14)
== END 2020-11-05 00:22 | disposition left against medical advice (07) ==
LOC: MW.ED 00:01
DX: T78.40XA Allergy, unspecified, initial encounter (principal); Z53.21 Procedure and treatment not carried out due to patient leaving prior to being seen by health care provider

== ENCOUNTER 2021-03-10 23:43 | Emergency (ER) | payer SELFPAY ==
[2021-03-10] MEDS ORDERED: diphenhydrAMINE 50 MG/ML SDV ONE (23:51)
[2021-03-10] MEDS ORDERED: methylPREDNISolone Sodium Succinate 125 MG/2 ML SDV ONE (23:51)
[2021-03-10] MEDS ORDERED: Famotidine 20 MG/2 ML SDV ONE (23:51)
[2021-03-10] MEDS ORDERED: diphenhydrAMINE 50 MG/ML SDV IVPUSH ONE (23:54)
[2021-03-10] MEDS ORDERED: methylPREDNISolone Sodium Succinate 125 MG/2 ML SDV IVPUSH ONE (23:55)
--- NOTE | 2021-03-11 00:18 | EDM.PDOC ---
ED HPI GENERAL MEDICAL PROBLEM - General Chief Complaint: Allergic Reaction Stated Complaint: POSSIBLE ALLERGIC REACTION Time Seen by Provider: 03/10/21 23:44 - History of Present Illness INITIAL COMMENTS - FREE TEXT/NARRATIVE: HISTORY AND PHYSICAL: History of present illness: Is a 25-year-old gentleman who presents ER today secondary to itching throughout his body and some swelling to his tongue that he noted after having a exam which with hot sauce on it. Patient reports that he believes that he is allergic to hot sauce. Patient reports that he is also allergic to peanuts but he did not eat anything with peanuts today. Patient is no history of hypertension, diabetes, liver, lung, kidney problems. Patient denies any recent fevers, shakes, chills, nausea, vomiting, diarrhea. Patient has any new foods or exposures to allergens. Patient believes that in the past has had reactions to spicy sauce in the past. Patient reports that he has used EpiPen in the past and is requesting a refill I did not have one at home. Review of systems: As per history of present illness and below otherwise all systems reviewed and negative. Past medical history: As per history of present illness and as reviewed below otherwise non contributory. Surgical history: As per history of present illness and as reviewed below otherwise noncontributory. Social history: No reported history of drug abuse. Family history: As per history of present illness and as reviewed below otherwise noncontributory. Physical exam: This patient was seen and evaluated during the 2019 SARS-CoV-2 novel coronavirus pandemic period. Community viral transmission is ongoing at time of this encounter and the emergency department is operating under pandemic response procedures. Constitutional: Patient is oriented to person, place, and time. Appears well- developed and well-nourished. No distress. HEENT: Moist mucous membranes. No angioedema to the tongue or uvula. Patient has no stridor. Patient's lungs are clear without any wheezing rales or rhonchi. Head: Normocephalic and atraumatic Eyes: Right eye exhibits no discharge. Left eye exhibits no discharge. No scleral icterus Neck: Normal range of motion. No tracheal deviation present. Cardiovascular: Normal rate and regular rhythm. Pulmonary: Effort normal, no respiratory distress. Abdominal: No distention Musculoskeletal: Normal range of motion Neurologic: Alert and oriented to person, place and time. Skin: [place], warm and dry. Hives noted on the skin. Psychiatric: Normal mood and affect. Behavior is normal. Judgment and thought content normal. Nursing note and vital signs have been reviewed Diagnostics: [] Therapeutics: [] Assessment and plan: 25-year-old gentleman who presents ER today with allergic reaction. Patient was given Benadryl, Solu-Medrol, Pepcid in the ED with significant improvement in his symptoms. Patient reports that he has no swelling or discomfort in his mouth or tongue and reports he feels much improved. Patient is requesting a pr escription for an EpiPen. Patient be discharged home with prescription for Benadryl, prednisone, Pepcid and EpiPen. Patient reports that he has been using EpiPen's in the past but is never come to the hospital needed. I have stressed to the patient that he ever needs to use the EpiPen and his reaction is that bad that he needs to come to the ER for evaluation. Reassessment at the time of disposition demonstrates that the patient is in no acute distress. The patient has remained stable throughout the entire ED visit and is without objective evidence for acute process requiring urgent interven tion or hospitalization. The patient is stable for discharge, counseling is provided as documented above, discussed symptomatic treatment and specific conditions for return. I have spoken with the patient/caregiver and discussed todays findings, in addition to providing specific details for the plan of care. Questions are answered and there is agreement with the plan. Definitive disposition and diagnosis as appropriate pending reevaluation and review of above. - Related Data Allergies Allergy/AdvReac Type Severity Reaction Status Date / Time peanut Allergy Anaphylactic Verified 03/10/21 23:54 Shock Home Meds: Home Meds methylPREDNISolone [Medrol Dose Pack] 4 mg PO DAILY #21 tab 09/26/20 [Rx] EPINEPHrine [Epipen 2-Ryder] 0.3 mg IJ ONETIME PRN #1 auto.injct 03/11/21 [Rx] Famotidine [Pepcid] 20 mg PO BID #20 tab 03/11/21 [Rx] diphenhydrAMINE [Benadryl] 50 mg PO Q6HR PRN #20 cap 03/11/21 [Rx] predniSONE [Prednisone] 50 mg PO DAILY #5 tablet 03/11/21 [Rx] Past Medical History - Past Health History Medical/Surgical History: Denies Medical/Surgical History HEENT History: Reports: None Cardiovascular History: Reports: None Respiratory History: Reports: Asthma Gastrointestinal History: Reports: None Genitourinary History: Reports: None Musculoskeletal History: Reports: None Neurological History: Reports: None Psychiatric History: Reports: None Endocrine/Metabolic History: Reports: None Insulin Pump Model and Conveyor Technician: N/A Hematologic History: Reports: None Immunologic History: Reports: Other (See Below) Other Immunologic History: anaphylaxis apr 2018 Oncologic (Cancer) History: Reports: None Dermatologic History: Reports: None - Infectious Disease History Infectious Disease History: Reports: None - Past Surgical History Head Surgeries/Procedures: Reports: None Social & Family History - Family History Family Medical History: No Pertinent Family History - Caffeine Use Caffeine Use: Reports: Coffee - Recreational Drug Use Recreational Drug Use: No ED ROS ALLERGIC REACTION - Review of Systems Review Of Systems: See Below ED EXAM GENERAL NO PERIP PULSE - Physical Exam Exam: See Below Course - Vital Signs Last Recorded V/S: Last Vital Signs Temp 97 F 03/10/21 23:45 Pulse 61 03/10/21 23:45 Resp 18 03/10/21 23:45 BP 137/53 L 03/10/21 23:45 Pulse Ox 97 03/10/21 23:45 - Orders/Labs/Meds Orders: Active Orders 24 hr Category Date Time Status Famotidine [Pepcid] Med 03/11/21 21:00 Active 20 mg IVPUSH BEDTIME Medication Orders Famotidine (Famotidine 20 Mg/2 Ml Sdv) 20 mg IVPUSH BEDTIME FERNANDO Meds: Medications Generic Name Dose Route Start Last Admin Trade Name Freq PRN Reason Stop Dose Admin Famotidine 20 mg 03/11/21 21:00 Famotidine 20 Mg/2 Ml Sdv IVPUSH BEDTIME FERNANDO Discontinued Medications Generic Name Dose Route Start Last Admin Trade Name Freq PRN Reason Stop Dose Admin Diphenhydramine HCl Confirm 03/10/21 23:51 03/11/21 00:09 Diphenhydramine 50 Mg/Ml Sdv Administered 03/10/21 23:52 Not Given Dose 50 mg .ROUTE .STK-MED ONE Diphenhydramine HCl 50 mg 03/10/21 23:54 Diphenhydramine 50 Mg/Ml Sdv IVPUSH 03/10/21 23:55 ONETIME ONE Famotidine Confirm 03/10/21 23:51 03/11/21 00:09 Famotidine 20 Mg/2 Ml Sdv Administered 03/10/21 23:52 Not Given Dose 20 mg .ROUTE .STK-MED ONE Methylprednisolone Sodium Succinate Confirm 03/10/21 23:51 03/11/21 00:10 Methylprednisolone Sodium Succinate 125 Mg/2 Ml Sdv Administered 03/10/21 23:52 Not Given Dose 125 mg .ROUTE .STK-MED ONE Methylprednisolone Sodium Succinate 125 mg 03/10/21 23:55 Methylprednisolone Sodium Succinate 125 Mg/2 Ml Sdv IVPUSH 03/10/21 23:56 ONETIME ONE Departure - Departure Time of Disposition: 00:13 Disposition: Home, Self-Care 01 Condition: Good Clinical Impression: Allergic reaction, Hives - Discharge Information Instructions: Hives, Allergies, Adult, [id number] Additional Instructions: Your seen and evaluated in the ER today secondary to an allergic reaction. You will be given a prescription for Benadryl, prednisone, Pepcid to help you with your allergic reaction. Please avoid all foods that you are concerned may be causing you have a reaction. You will also be given a prescription for EpiPen to take as needed however if you ever need to use your EpiPen yesterday must come to the ER for observation and evaluation. The following information is given to patients seen in the emergency department who are being discharged to home. This information is to outline your options for follow-up care. We provide all patients seen in our emergency department with a follow-up referral. The need for follow-up, as well as the timing and circumstances, are variable depending upon the specifics of your emergency department visit. If you don't have a primary care physician on staff, we will provide you with a referral. We always advise you to contact your personal physician following an emergency department visit to inform them of the circumstance of the visit and for follow-up with them and/or the need for any referrals to a consulting specialist. The emergency department will also refer you to a specialist when appropriate. This referral assures that you have the opportunity for follow-up care with a specialist. All of these measure are taken in an effort to provide you with optimal care, which includes your follow-up. Under all circumstances we always encourage you to contact your private physician who remains a resource for coordinating your care. When calling for follow-up care, please make the office aware that this follow-up is from your recent emergency room visit. If for any reason you are refused follow-up, please contact the [facility] Emergency Department at and asked to speak to the emergency department charge nurse. [facility] - Primary Care [address] [place] [id number] [facility] [address] [place] [id number] Sepsis Event Note (ED) - Evaluation Sepsis Screening Result: No Definite Risk - Focused Exam Vital Signs: Vital Signs Temp Pulse Resp BP Pulse Ox 03/10/21 23:45 97 F 61 18 137/53 L 97 - My Orders Last 24 Hours: My Active Orders 03/11/21 21:00 Famotidine [Pepcid] 20 mg IVPUSH BEDTIME - Assessment/Plan Last 24 Hours: My Active Orders 03/11/21 21:00 Famotidine [Pepcid] 20 mg IVPUSH BEDTIME
[2021-03-11] MEDS ORDERED: Famotidine 20 MG/2 ML SDV IVPUSH ONE (00:52)
[2021-03-11] MEDS ORDERED: Famotidine 20 MG/2 ML SDV IVPUSH SCH (21:00)
== END 2021-03-11 02:13 | disposition home or self-care (01) ==
LOC: MW.ED 23:43
DX: L50.0 Allergic urticaria (principal); J45.909 Unspecified asthma, uncomplicated; Z91.010 Allergy to peanuts; Z79.899 Other long term (current) drug therapy
CPT/HCPCS: 96374; 96375; 99283; J1200; J2930; J3490

== ENCOUNTER 2021-04-21 01:04 | Emergency (ER) | payer SELFPAY ==
[2021-04-21] MEDS ORDERED: methylPREDNISolone Sodium Succinate 125 MG/2 ML SDV IVPUSH ONE (01:19)
[2021-04-21] MEDS ORDERED: diphenhydrAMINE 50 MG/ML SDV IVPUSH ONE (01:19)
[2021-04-21] MEDS ORDERED: Famotidine 20 MG/2 ML SDV IVPUSH ONE (01:20)
--- NOTE | 2021-04-21 01:52 | EDM.PDOC ---
ED HPI GENERAL MEDICAL PROBLEM - General Chief Complaint: Allergic Reaction Stated Complaint: ALLERGIC REACTION- HIVES Time Seen by Provider: 04/21/21 01:16 - History of Present Illness INITIAL COMMENTS - FREE TEXT/NARRATIVE: HISTORY AND PHYSICAL: History of present illness: This is a 25-year-old gentleman with no significant past medical history except for allergies to peanuts who presents ER today secondary to swelling to his face and a sensation of tongue swelling. Patient has no shortness of breath or wheezing. Patient has no difficulty swallowing or change in his voice. Patient reports that he took Benadryl at home prior to arrival without any improvement in his symptoms however upon arrival he reports that his symptoms have started to improve. Patient has any recent fevers, shakes, chills, nausea, vomiting, diarrhea, dysuria, frequency, urgency. Review of systems: As per history of present illness and below otherwise all systems reviewed and negative. Past medical history: As per history of present illness and as reviewed below otherwise noncontributory. Surgical history: As per history of present illness and as reviewed below otherwise noncontributory. Social history: No reported history of drug abuse. Family history: As per history of present illness and as reviewed below otherwise noncontributory. Physical exam: This patient was seen and evaluated during the 2019 SARS-CoV-2 novel coronavirus pandemic period. Community viral transmission is ongoing at time of this encounter and the emergency department is operating under pandemic response procedures. Constitutional: Patient is oriented to person, place, and time. Appears well- developed and well-nourished. No distress. HEENT: Moist mucous membranes Head: Normocephalic and atraumatic Eyes: Right eye exhibits no discharge. Left eye exhibits no discharge. No scleral icterus Neck: Normal range of motion. No tracheal deviation present. Cardiovascular: Normal rate and regular rhythm. Pulmonary: Effort normal, no respiratory distress. Abdominal: No distention Musculoskeletal: Normal range of motion Neurologic: Alert and oriented to person, place and time. Skin: [place], warm and dry. Psychiatric: Normal mood and affect. Behavior is normal. Judgment and thought content normal. Nursing note and vital signs have been reviewed Patient presents ER today with ER physical exam findings significant for slight facial swelling particular on the periorbital region. Patient has no uvular edema. Patient has no notable tongue edema or lip edema. Patient has no stridor. Patient has rash and hives noted throughout his face and chest. Patient is tolerating secretions well and no respiratory distress. Diagnostics: [] Therapeutics: [] Assessment and plan: 25-year-old gentleman who presents ER today secondary to an allergic reaction of unknown etiology. Patient reports that he did eat in high but it and thinks maybe this might of had some peanut allergy. Otherwise patient is not sure what other new allergens he might of been exposed. Patient be given IV Benadryl, Solu-Medrol, Pepcid here in the ED and will be reevaluated. At this time his airway is stable and with no evidence of angioedema. Patient be discharged home with a prescription for an EpiPen as well as Benadryl Pepcid and prednisone. Reassessment at the time of disposition demonstrates that the patient is in no acute distress. The patient has remained stable throughout the entire ED visit and is without objective evidence for acute process requiring urgent intervention or hospitalization. The patient is stable for discharge, counseling is provided as documented above, discussed symptomatic treatment and specific conditions for return. I have spoken with the patient/caregiver and discussed todays findings, in addition to providing specific details for the plan of care. Questions are answered and there is agreement with the plan. Definitive disposition and diagnosis as appropriate pending reevaluation and review of above. - Related Data Allergies Allergy/AdvReac Type Severity Reaction Status Date / Time peanut Allergy Anaphylactic Verified 04/21/21 01:11 Shock Home Meds: Home Meds EPINEPHrine [Epipen 2-Ryder] 0.3 mg IJ ONETIME PRN #1 auto.injct 04/21/21 [Rx] Famotidine [Pepcid] 20 mg PO BID #10 tablet 04/21/21 [Rx] diphenhydrAMINE [Benadryl] 50 mg PO Q6HR PRN #20 cap 04/21/21 [Rx] predniSONE [Prednisone] 50 mg PO DAILY #5 tablet 04/21/21 [Rx] Past Medical History - Past Health History Medical/Surgical History: Denies Medical/Surgical History HEENT History: Reports: None Cardiovascular History: Reports: None Respiratory History: Reports: Asthma Gastrointestinal History: Reports: None Genitourinary History: Reports: None Musculoskeletal History: Reports: None Neurological History: Reports: None Psychiatric History: Reports: None Endocrine/Metabolic History: Reports: None Insulin Pump Model and Anime Artist: N/A Hematologic History: Reports: None Immunologic History: Reports: Other (See Below) Other Immunologic History: anaphylaxis apr 2018 Oncologic (Cancer) History: Reports: None Dermatologic History: Reports: None - Infectious Disease History Infectious Disease History: Reports: None - Past Surgical History Head Surgeries/Procedures: Reports: None Social & Family History - Family History Family Medical History: No Pertinent Family History - Tobacco Use Tobacco Use Status *Q: Current Some Day Tobacco User Years of Tobacco use: 7 Packs/Tins Daily: 0.2 - Caffeine Use Caffeine Use: Reports: Coffee - Recreational Drug Use Recreational Drug Use: No ED ROS ALLERGIC REACTION - Review of Systems Review Of Systems: See Below ED EXAM GENERAL NO PERIP PULSE - Physical Exam Exam: See Below Course - Vital Signs Last Recorded V/S: Last Vital Signs Temp 98.3 F 04/21/21 01:08 Pulse 73 04/21/21 01:57 Resp 18 04/21/21 01:57 BP 110/74 04/21/21 01:57 Pulse Ox 98 04/21/21 01:57 - Orders/Labs/Meds Meds: Medications Discontinued Medications Generic Name Dose Route Start Last Admin Trade Name Freq PRN Reason Stop Dose Admin Diphenhydramine HCl 50 mg 04/21/21 01:19 04/21/21 01:29 Diphenhydramine 50 Mg/Ml Sdv IVPUSH 04/21/21 01:20 50 mg ONETIME ONE Administration Famotidine 20 mg 04/21/21 01:20 04/21/21 01:28 Famotidine 20 Mg/2 Ml Sdv IVPUSH 04/21/21 01:21 20 mg ONETIME ONE Administration Methylprednisolone Sodium Succinate 125 mg 04/21/21 01:19 04/21/21 01:28 Methylprednisolone Sodium Succinate 125 Mg/2 Ml Sdv IVPUSH 04/21/21 01:20 125 mg ONETIME ONE Administration Departure - Departure Time of Disposition: 02:39 Disposition: Home, Self-Care 01 Condition: Good Clinical Impression: Allergic reaction, Hives - Discharge Information Prescriptions: diphenhydrAMINE [Benadryl] 50 mg PO Q6HR PRN #20 cap PRN Reason: Itching EPINEPHrine [Epipen 2-Ryder] 0.3 mg IJ ONETIME PRN #1 auto.injct PRN Reason: Allergies Famotidine [Pepcid] 20 mg PO BID #10 tablet predniSONE [Prednisone] 50 mg PO DAILY #5 tablet Instructions: Hives, Allergies, Adult, [id number], Food Choices for Peanut Allergy, Adult Referrals: PCP,None [Primary Care Provider] - Forms: ED Department Discharge Additional Instructions: You were seen and evaluated in ER today secondary to an allergic reaction of unclear etiology. You will be given a prescription for an EpiPen to utilize in case you should have recurrent allergic reactions and are unable to reach [facility] in time. If he ever utilized EpiPen you must come to the emergency department for reevaluation. In the ER you will also be given a prescription for Benadryl to take every 6 hours for the next 2 days as well as prednisone to take daily for 5 days and Pepcid to take twice a day for the next 5 days as well. The following information is given to patients seen in the emergency department who are being discharged to home. This information is to outline your options for follow-up care. We provide all patients seen in our emergency department with a follow-up referral. The need for follow-up, as well as the timing and circumstances, are variable depending upon the specifics of your emergency department visit. If you don't have a primary care physician on staff, we will provide you with a referral. We always advise you to contact your personal physician following an emergency department visit to inform them of the circumstance of the visit and for follow-up with them and/or the need for any referrals to a consulting specialist. The emergency department will also refer you to a specialist when appropriate. This referral assures that you have the opportunity for follow-up care with a specialist. All of these measure are taken in an effort to provide you with optimal care, which includes your follow-up. Under all circumstances we always encourage you to contact your private physician who remains a resource for coordinating your care. When calling for follow-up care, please make the office aware that this follow-up is from your recent emergency room visit. If for any reason you are refused follow-up, please contact the [facility] Emergency Department at and asked to speak to the emergency department charge nurse. [facility] [address] [place] [id number] [facility] [address] [place] [address] Sepsis Event Note (ED) - Evaluation Sepsis Screening Result: No Definite Risk - Focused Exam Vital Signs: Vital Signs Temp Pulse Resp BP Pulse Ox 04/21/21 01:57 73 18 110/74 98 04/21/21 01:08 98.3 F 88 18 128/64 100
== END 2021-04-21 02:49 | disposition home or self-care (01) ==
LOC: MW.ED 01:04
DX: L50.0 Allergic urticaria (principal); Z91.010 Allergy to peanuts; Z72.0 Tobacco use
CPT/HCPCS: 96374; 96375; 99283; J1200; J2930; J3490

== ENCOUNTER 2022-09-10 20:03 | Inpatient (IN) | payer SELFPAY ==
[2022-09-10] MEDS ORDERED: EPINEPHrine 1 MG/1 ML Amp ONE (20:08)
[2022-09-10] MEDS ORDERED: EPINEPHrine 1 MG/1 ML Amp IM ONE ×2 (20:09→21:13)
[2022-09-10] MEDS ORDERED: diphenhydrAMINE 50 MG/ML SDV IVPUSH ONE ×2 (20:09→21:13)
[2022-09-10] MEDS ORDERED: Sodium Chloride 0.9% 1,000 ML IV ONE (20:09)
[2022-09-10] MEDS ORDERED: Famotidine 20 MG/2 ML SDV IVPUSH ONE (20:11)
[2022-09-10 21:00] LABS: CALCIUM 8.9 mg/dL (8.5-10.1); CARBON DIOXIDE,CO2 29.1 mmol/L (21.0-32.0); CREATININE 1.3 mg/dL (0.8-1.3); EST CRCL DRUG DOSING (CG) 96.68 mL/min; POTASSIUM,K 3.3 mmol/L (3.5-5.1)
== END 2022-09-10 23:03 | disposition left against medical advice (07) | DRG 916 ==
LOC: MW.ED 20:03 → MW.ICU 21:19
PROVIDERS: ADMIT Internal Medicine; ATTEND Internal Medicine
DX: T78.2XXA Anaphylactic shock, unspecified, initial encounter (principal); J45.909 Unspecified asthma, uncomplicated; Z91.010 Allergy to peanuts; Z98.890 Other specified postprocedural states
CPT/HCPCS: 36415; 80048; 96361; 96372; 96374; 96375; 99285-25; J0171; J1200; J3490; J7030

== ENCOUNTER 2023-03-02 20:30 | Emergency (ER) | payer SELFPAY ==
[2023-03-02] MEDS ORDERED: methylPREDNISolone Sodium Succinate 125 MG/2 ML SDV IVPUSH STA (21:11)
[2023-03-02] MEDS ORDERED: diphenhydrAMINE 50 MG/ML SDV IVPUSH STA (21:11)
[2023-03-02] MEDS ORDERED: Sodium Chloride 0.9% 1,000 ML IV STA (21:11)
[2023-03-02] MEDS ORDERED: Famotidine 20 MG/2 ML SDV IVPUSH STA (21:11)
[2023-03-02] MEDS ORDERED: EPINEPHrine 1 MG/1 ML Amp IM STA (21:12)
== END 2023-03-02 23:26 | disposition home or self-care (01) ==
LOC: MW.ED 20:30
DX: T78.2XXA Anaphylactic shock, unspecified, initial encounter (principal); J45.909 Unspecified asthma, uncomplicated; Z91.010 Allergy to peanuts
CPT/HCPCS: 96361; 96372; 96374; 96375; 99284; J0171; J1200; J2930; J3490; J7030